=== PATIENT | male | born 1995 | race African-American/Black ===

== ENCOUNTER 2023-08-20 12:03 | Emergency (ER) | payer SELFPAY ==
[~2023-08-20] VITALS: Ht 175.3 cm; Wt 69.0 kg
[2023-08-20 12:48] VITALS: BP 109/60; O2SAT 99
[2023-08-20] MEDS ORDERED: BACITRACIN ZINC OINT UDPKT TOP ONE (15:30)
[2023-08-20] MEDS ORDERED: LIDOCAINE HCL/PF 1% 10 MG/ML 5ML VIAL INFIL ONE (15:30)
[2023-08-20] MEDS ORDERED: AMOX1TAB16 MT (17:16)
[2023-08-20] MEDS ORDERED: IBUP-2030 MT (17:18)
[2023-08-20 18:10] VITALS: PULSE 59; RESP 16; TEMP 98.5
== END 2023-08-20 18:13 | disposition home or self-care (01) ==
LOC: EDBD 12:03 → ER 12:03
DX: L02.01 Cutaneous abscess of face (principal); K09.8 Other cysts of oral region, not elsewhere classified
CPT/HCPCS: 10060; 99283; Z7610 ×2; 99282